=== PATIENT | female | born 1945 | race Caucasian/White ===

== ENCOUNTER 2016-08-30 05:17 | Inpatient (IN) | payer OTHER, MEDICARE ==
[~2016-08-30] VITALS: Ht 167.6 cm; Wt 59.0 kg
--- NOTE | ~2016-08-30 | O ---
[address] [address] OPERATIVE REPORT Name: ASHISH PINEDO Room #: 150-2 ADM IN M.R.#: [id number] Admission: 08/30/16 Attend Phys: Maxi Schuler MD Discharge: Date of : 41 Report #: [id number] THIS REPORT FOR: //name// CC: Ayana Schuler DATE OF SERVICE: 08/30/2016 SERVICE: Orthopedics. FACILITY: [facility] SURGEON: Maxi Schuler MD WELDER APPRENTICE SURGEON: None. PREOPERATIVE DIAGNOSES: 1. Right hip pain. 2. Right hip labral tear. 3. Right hip abductor tendon tear affecting the gluteus medius and gluteus minimus. POSTOPERATIVE DIAGNOSES: 1. Right hip pain. 2. Right hip labral tear. 3. Right hip abductor tendon tear affecting the gluteus medius and gluteus minimus. 4. Right hip impingement. PROCEDURES: 1. Right hip arthroscopic labral debridement with acetabuloplasty. 2. Right hip arthroscopic greater trochanteric bursectomy. 3. Open right hip abductor tendon repair of the gluteus medius and minimus tendons. COMPLICATIONS: None. DRAINS: None. SPECIMENS: None. ANESTHESIA TYPE: General. TRACTION TIME: 23 minutes. FINDINGS: [address] [address] OPERATIVE REPORT Name: ASHISH PINEDO Room #: 150-2 [facility] IN [facility]#: [id number] Admission: 08/30/16 Attend Phys: Maxi Schuler MD Discharge: Date of : 41 Report #: [id number] 1. Degenerative labral tear with an adjacent prominent anterior acetabular rim overgrowing the labrum treated with acetabuloplasty, degenerative frayed labrum treated with debridement. 2. Abductor tendon tear, treated with an open double row repair with Truminim Iconix double loaded tape anchor times 2 (2.3 mm anchor) and a 3.5 mm Arthrex PushLock distal row anchor. HISTORY AND INDICATIONS: The patient is a 71-year-old female with longstanding history of chronic lateral and occasional anterior groin and hip pain. She had extensive amount of conservative measures including activity modification, medication therapy modalities, but she continued to have significant pain. She had an MRI, which revealed evidence of degenerative changes of the labrum as well as a high-grade tear of the gluteus medius and minimus tendons at the anterior aspect of the greater trochanteric insertion. After risks, benefits, alternatives and indications for surgery were discussed with her in detail, she ultimately wished to undergo surgical treatment. The risks include, but are not limited to pain, bleeding, infection, injury to nerves or blood vessels, persistent pain despite surgical intervention, failure of any repairs, reconstructions, progression of any preexisting chondral injury, stiffness, need for further surgery and complications related to anesthesia such as stroke, heart attack, pulmonary complications, thromboembolic disease and . Despite these risks, she wished to proceed. PROCEDURE IN DETAIL: After right lower extremity was correctly identified in the preoperative holding area as the operative extremity, the patient was taken to the operating room and placed supine on operating table and general endotracheal anesthesia was induced without complication. All bony prominences and subcutaneous nerves were padded appropriately. Prophylactic antibiotics with 600 mg of clindamycin were administered at appropriate time due to allergy to AMOXICILLIN. We placed bilateral lower extremities in well-padded traction boots, confirmed that adequate traction could be applied across the right hip and then the right lower extremity was prepped and draped in standard sterile fashion. Time-out procedure was performed. Traction was applied to the right lower extremity. Total traction time was 23 minutes. A standard anterolateral viewing portal was established slightly anterior to the typical location; however, so as to not affect the abductor tendon. The mid anterior portal was then established under direct arthroscopic visualization and diagnostic arthroscopy revealed overall intact articular cartilage. She had some grade 2 changes of the femoral head measuring approximately 5 mm x 6 mm in one focal area and then the anterior superior aspect of the acetabulum at the anterior rim had some grade 2 changes as well, but there were no loose flap tears. There was a degenerative frayed labral tear from the 1 o'clock to the 10 o'clock position, this was worst at the 11 o'clock position, this was treated with debridement with the shaver as it was not repairable. There was prominent anterior rim bone on the edge of the acetabulum [address] [address] OPERATIVE REPORT Name: PINEDOASHISH F Room #: 150-2 [facility] IN M.R.#: [id number] Admission: 08/30/16 Attend Phys: Maxi Schuler MD Discharge: Date of : 41 Report #: [id number] at approximately the 11:30-12:30 position. This correlated with the worst of the labral tear and was overgrowing the labrum, so the bur was used to perform an acetabuloplasty here recessing it back behind the edge of the labrum, then the labral debridement was completed, there was still residual labrum probably 30% of the modoc labrum as the majority of it was frayed and degenerative in this location. The rest of the labrum was able to be maintained. The acetabuloplasty was performed through a distal anterolateral sensory portal in order to allow better direct access to that location without creating a large capsulotomy. At this point, instruments were removed from the hip and the traction was let down and the hip was abducted. The peritrochanteric space was accessed with a distal anterolateral sensory and the anterolateral portals and then a thorough trochanteric bursectomy was performed. There was extensive amount of thickened trochanteric bursa and this extended proximally and distally and the resection was performed until the gluteus angel tendon could be visualized as well as the vastus lateralis tendon and then the greater trochanteric was visualized. The posterior portion of the gluteus medius insertion was very normal and healthy in appearance, but the anterior half of the trochanteric insertion of the abductors was pathologic. There was a frayed tendon and a very limited debridement was required in order to access a very large tear in the anterior portion of the insertion and then using the 70-degree arthroscope, the scope was able to be placed into the tear, which was most prominent on the deep side of the tendon and then the shaver was used to thoroughly debride the frayed degenerative tendon tissue on tendon side and then the degenerative tendonopathy on the trochanteric insertion that was residual was also debrided thoroughly. A Sharp elevator and a ring curette were used to abrade the bone and then utilizing a 2.3-mm Mangataronix anchor drill guide, two double loaded Iconix anchors were placed in the greater trochanter using fluoroscopy for guidance for the trajectory. These were both loaded with 2.0 mm labral tape times 2 giving a total of 8 strands of suture. Based on the size of the tear, decision was then made to perform an open repair. A 7-cm longitudinal incision was then made over the abductor insertion and dissection was taken down to the IT band, which was incised and then retracted. The abductor insertion with the abraded greater trochanteric insertion location which was bald due to the chronic tear was easily visualized. The anchors were visualized as well and then the 8 sutures were passed in full thickness bites through the abductor tendon, creating a total of 4 mattress sutures. These were then tied and secured and an excellent proximal row repair was achieved and then a double row construct was created with a 3.5 mm Arthrex PushLock anchor with 4 limbs of the labral tape sutures. This provided excellent coverage of the footprint and then the hip was taken through an external and internal rotation range of motion and the repair was found to be stable and was secured on palpation. The wound was irrigated. The fascia was closed with 0 Vicryl suture in [id number] fashion. A portion of the residual trochanteric bursa was sewn over the top of the fascial layer to [address] [address] OPERATIVE REPORT Name: ASHISH PINEDO Room #: 150-2 [facility] IN M.R.#: [id number] Admission: 08/30/16 Attend Phys: Maxi Schuler MD Discharge: Date of : 41 Report #: [id number] reinforce it and then the skin was closed with a layer 2-0 Vicryl followed by skin melissa. The portal sites were closed with 2-0 Vicryl and 3-0 Monocryl. Sterile dressing was applied. The patient was transferred to hospital bed and taken to recovery room in stable condition. There were no complications. All counts were recorded as correct. <ELECTRONICALLY SIGNED> By: Maxi Schuler MD 08/30/16 1325 [id number] [id number] Maxi Schuler MD /nt
[~2016-08-30 05:17] MED LIST: ASTEPRO205.5 MCG/ INH; CALCIUM 600 +1 EAC1 PO; CLONAZEPAM 1 MG1 M1 PO; COMBIVENT INH; CORMAX50 ML TP; FISH OIL 1,001000 M2 PO; FLONASE 0.05%50 MCG NASAL; FOLIC ACID 40400 MCG PO; GABAPENTIN 100100 MG PO; GLUCOSAMINE CH1 EAC2 PO; HYDROCHLOROTH12.5 M1 PO; LIPITOR10 MG PO; LOPRESSOR50 PO; MAGNESIUM OXID400 MG PO; OCUVITE SOFTGE1 EAC1 PO; THERA TEARS1 EACH OPHTHALMIC; TRAMADOL 50 MG50 MG PO
[2016-08-30 07:43] VITALS: BP 133/58
[2016-08-30 20:00] VITALS: BP 127/63
[2016-08-31 04:00] VITALS: BP 131/78
[2016-08-31 09:36] VITALS: BP 128/51
[2016-08-31 16:07] VITALS: BP 128/51
[2016-08-31 16:11] VITALS: BP 128/51
[2016-08-31] MEDS ORDERED: ASPIRIN325 PO (16:17)
[2016-08-31] MEDS ORDERED: COLACE100 MG PO (16:19)
[2016-08-31] MEDS ORDERED: ONDANSETRON HCL4 M2 PO (16:20)
[2016-08-31] MEDS ORDERED: HYDROCODONE-AP1 EAC6 PO (16:20)
[2016-08-31] MEDS ORDERED: XARELTO10 MG PO (16:21)
== END 2016-08-31 19:07 | disposition home health service (06) | DRG 482 ==
LOC: 5S 05:17 → TBA 05:17 → PRE 10:55 → 5S 17:44
PROC: 0SB94ZZ Excision of Right Hip Joint, Percutaneous Endoscopic Approach (ICD-10-PCS; principal; 2016-08-30)
PROC: 0MBL4ZZ Excision of Right Hip Bursa and Ligament, Percutaneous Endoscopic Approach (ICD-10-PCS; principal; 2016-08-30)
PROC: 0QQ Lower Bones, Repair (ICD-10-PCS; principal; 2016-08-30)
PROC: 0LQJ0ZZ Repair Right Hip Tendon, Open Approach (ICD-10-PCS; principal; 2016-08-30)
DX: S76.011A Strain of muscle, fascia and tendon of right hip, initial encounter (principal); M25.851 Other specified joint disorders, right hip; I10 Essential (primary) hypertension; E78.5 Hyperlipidemia, unspecified; F41.9 Anxiety disorder, unspecified; J45.909 Unspecified asthma, uncomplicated; X58.XXXA Exposure to other specified factors, initial encounter; Z88.6 Allergy status to analgesic agent; Z88.1 Allergy status to other antibiotic agents; Z88.8 Allergy status to other drugs, medicaments and biological substances; Z91.040 Latex allergy status; Y93.89 Activity, other specified; Y92.89 Other specified places as the place of occurrence of the external cause; Y99.8 Other external cause status
CPT/HCPCS: 10086; 50010; 50101; 50386; 50636; 51412; 51538; 52304; 55430; 56524; 56525; 56526; 56527; 62110; 62900; 70005